=== PATIENT | male | born 1950 | race African-American/Black ===

== ENCOUNTER 2019-12-05 11:15 | Outpatient (CLI) | payer OTHER, SELFPAY, BC | END 2019-12-05 23:59 | disposition home or self-care (01) | LOC: MLB 11:15 → EDSTATUS 12-27 15:00 | PROVIDERS: ATTEND Internal Medicine Gastroenterology | DX: Z12.11 Encounter for screening for malignant neoplasm of colon (principal); Z20.828 Contact with and (suspected) exposure to other viral communicable diseases; Z53.8 Procedure and treatment not carried out for other reasons | CPT/HCPCS: U0003-CS ==